=== PATIENT | male | born 1995 | race Native Hawaiian/Other Pacific Islander ===

== ENCOUNTER 2018-07-23 03:18 | Emergency (ER) | payer OTHER ==
[2018-07-23 03:39] VITALS: RESP 18; O2SAT 100
[2018-07-23] MEDS ORDERED: Sodium Chloride 0.9% 1,000 ML IV STA (03:57)
[2018-07-23 04:19] LABS: ALB/GLOB RATIO 1.5 (1.0-2.1); ALT/SGPT 22 U/L (21-72); AST/SGOT 26 U/L (17-59); BLOOD UREA NITROGEN 18 mg/dl (9-20); CALCIUM 9.6 mg/dL (8.4-10.2); GFR NON-AFRICAN AMERICAN 48
[2018-07-23 04:34] LABS: BASO # 0.1 K/uL (0.0-0.2); BASO % 0.7 % (0.0-2.0); EOS # 0.1 K/uL (0.0-0.7); EOS % 0.7 % (0.0-4.0); HEMOGLOBIN 15.2 g/dL (12.0-18.0); LYMPH % 40.4 % (20.0-40.0); MEAN CELL VOLUME 90.7 fl (80.0-94.0); MEAN CORPUSCULAR HEMOGLOBIN 29.8 pg (27.0-31.0); MEAN CORPUSCULAR HGB CONC 32.9 g/dL (33.0-37.0); MEAN PLATELET VOLUME 8.2 fl (7.2-11.7); MONO # 0.6 K/uL (0.0-0.8); MONO % 7.6 % (0.0-10.0); NEUT # 3.7 K/uL (1.8-7.0); NEUT % 50.6 % (50.0-75.0); NRBC % 0.3 % (0.0-0.0); RBC 5.1 Mil/uL (4.40-5.90); RED CELL DISTRIBUTION WIDTH 13.2 % (11.5-14.5); WHITE BLOOD COUNT 7.4 K/uL (4.8-10.8)
--- NOTE | 2018-07-23 04:34 | ED PDOC ---
HPI: Chest Pain Time Seen by Provider: 07/23/18 03:38 Chief Complaint (Nursing): Chest Pain History Per: Patient Additional Complaint(s): Pt. states at approximately 0215 today he woke up from sleep feeling chest pain and palpitations. Reports shortly afterwards he developed numbness to all his fingertips and toes. Pt. reports feeling faint. Chest pain and palpitations are intermittent. Denies SOB, hemoptysis, leg pain, hx of DVT or PE, fever, chills. Past Medical History Reviewed: Historical Data, Nursing Documentation, Vital Signs Vital Signs: Last Vital Signs Temp 97.7 F 07/23/18 03:35 Pulse 103 H 07/23/18 03:35 Resp 18 07/23/18 03:35 BP 146/76 07/23/18 03:35 Pulse Ox 100 07/23/18 03:35 - Medical History PMH: No Chronic Diseases Denies: CAD, Diabetes, HTN, Hypercholesterolemia, Hyperlipidemia, Hyperthyroidism, End Stage Renal Disease, Chronic Kidney Disease - Surgical History Surgical History: Denies: CABG Other surgeries: rhinoplasty - Family History Family History: States: No Known Family Hx Denies: [place], CAD - Living Arrangements Living Arrangements: With Friends/Others - Social History Current smoker - smoking cessation education provided: No Ex-Smoker (has not smoked in the last 12 months): No Alcohol: Social Drugs: Denies - Allergies Allergies/Adverse Reactions: Allergies Allergy/AdvReac Type Severity Reaction Status Date / Time No Known Allergies Allergy Verified 07/23/18 03:39 ADARSH Risk Score for UA/NSTEMI - ADARSH Risk Score Age > 64: NO 3 or more CAD Risk Factors: NO Known CAD (Stenosis greater than 50%): NO Aspirin use in past 7 days: NO Severe Angina: NO EKG ST changes greater than 0.5mm: NO Positive Cardiac Marker: NO ADARSH Score: 0 Risk %: 5% Wells Criteria for PE - Wells Criteria for Pulmonary Embolism Clinical Signs and Symptoms of DVT: No P.E is #1 Diagnosis, or Equally Likely: No Heart Rate >100: No Immobilization at least 3 days;Surgery previous 4 weeks: No Previous, objectively diagnosed PE or DVT: No Hemoptysis: No Malignancy w/treatment within 6 months, or palliative: No Total Score: 0 Review of Systems ROS Statement: Except As Marked, All Systems Reviewed And Found Negative Cardiovascular: Positive for: Chest Pain, Palpitations Neurological: Positive for: Numbness Physical Exam - Physical Exam Appears: Positive for: Well, Non-toxic, No Acute Distress Skin: Positive for: Normal Color, Warm. Negative for: Rash Eye Exam: Positive for: Normal appearance ENT: Positive for: Normal ENT Inspection Cardiovascular/Chest: Positive for: Regular Rate, Rhythm. Negative for: Murmur, Tachycardia Respiratory: Positive for: Normal Breath Sounds. Negative for: Respiratory Distress Gastrointestinal/Abdominal: Positive for: Soft. Negative for: Tenderness Neurological/Psych: Positive for: Awake, Alert, Oriented (x3), Mood/Affect (cooperative, appears anxious) - Laboratory Results Result Diagrams: 07/23/18 03:56 07/23/18 03:56 Lab Results: Total Bilirubin 0.6 mg/dl (0.2-1.3) 07/23/18 03:56 AST 26 U/L (17-59) 07/23/18 03:56 ALT 22 U/L (21-72) 07/23/18 03:56 Alkaline Phosphatase 70 U/L (38-126) 07/23/18 03:56 Total Protein 8.4 G/DL (6.3-8.2) H 07/23/18 03:56 Albumin 5.0 g/dL (3.5-5.0) 07/23/18 03:56 Globulin 3.4 gm/dL (2.2-3.9) 07/23/18 03:56 Albumin/Globulin Ratio 1.5 (1.0-2.1) 07/23/18 03:56 - ECG ECG: Positive for: Interpreted By Me ECG Rhythm: Positive for: Sinus Tachycardia. Negative for: ST/T Changes Rate: 103 O2 Sat by Pulse Oximetry: 100 - Progress ED Course And Treament: Labs, EKG ordered. Disposition - Clinical Impression Clinical Impression: Chest pain, Palpitations - Patient ED Disposition Is Patient to be Admitted: Transfer of Care (Dr. Sampson continued care at the end of my shift pending labs and re-evaluation.) - Disposition Disposition Time: 06:00 Condition: STABLE Forms: [employer] ([place] Islander)
[2018-07-23 06:33] LABS: T3 1.53 nmol/L (1.49-2.60)
[2018-07-23 07:27] LABS: BARBITURATES, UR NEGATIVE (NEGATIVE); BENZODIAZEPINES, UR NEGATIVE (NEGATIVE); OPIATES, UR NEGATIVE (NEGATIVE); PHENCYCLIDINE, UR NEGATIVE (NEGATIVE)
[2018-07-23 07:52] VITALS: BP 122/71; PULSE 88; TEMP 98.2
--- NOTE | 2018-07-23 09:20 | RAD ---
Date of service: 07/23/2018 HISTORY: chest pain COMPARISON: No prior. FINDINGS: LUNGS: No active pulmonary disease. PLEURA: No significant pleural effusion identified, no pneumothorax apparent. CARDIOVASCULAR: No aortic atherosclerotic calcification present. Normal cardiac size. No pulmonary vascular congestion. OSSEOUS STRUCTURES: No significant abnormalities. VISUALIZED UPPER ABDOMEN: Normal. OTHER FINDINGS: None. IMPRESSION: No active disease.
--- NOTE | 2018-07-23 09:39 | CARD ---
APPROVED REPORT Date of service: 07/23/2018 EKG Measurement Heart [id number] <Conclusion> Sinus tachycardia Otherwise normal ECG
== END 2018-07-23 07:50 | disposition home or self-care (01) ==
LOC: H.ER 03:18
DX: R07.9 Chest pain, unspecified (principal); R00.2 Palpitations; Z87.891 Personal history of nicotine dependence
CPT/HCPCS: 71045; 80053; 80320; 80324; 80345; 80346; 80349; 80353; 80358; 80361; 83992; 84439; 84443; 84481; 84484; 85025; 85378; 93005; 99284; J7030

== ENCOUNTER 2018-07-23 11:33 | Emergency (ER) | payer OTHER ==
[2018-07-23 11:41] VITALS: BMI 26.9
--- NOTE | 2018-07-23 12:25 | ED PDOC ---
HPI: Chest Pain Time Seen by Provider: 07/23/18 11:44 Chief Complaint (Nursing): Palpitations Chief Complaint (Provider): Palpitations History Per: Patient History/Exam Limitations: no limitations Onset/Duration Of Symptoms: Persistent Current Symptoms Are (Timing): Still Present Additional Complaint(s): 22 year old male with no significant medical history, returns to the emergency department with a complaint of persistent palpitations associated with headache and numbness to his hands and feet. He reports that symptoms occurred while he was sleeping last night. Patient was recent evaluated and discharged from this ED this morning for similar complaints with negative ddimer/trop/EKG. Otherwise, he denies any chest pain or shortness of breath. PCP: none provided Past Medical History Reviewed: Historical Data, Nursing Documentation, Vital Signs Vital Signs: Last Vital Signs Temp 98.3 F 07/23/18 11:42 Pulse 75 07/23/18 11:42 Resp 18 07/23/18 11:42 BP 121/74 07/23/18 11:42 Pulse Ox 99 07/23/18 11:42 - Medical History PMH: No Chronic Diseases Denies: CAD, Diabetes, HTN, Hypercholesterolemia, Hyperlipidemia, Hyperthyroidism, End Stage Renal Disease, Chronic Kidney Disease - Surgical History Surgical History: Denies: CABG - Family History Family History: Denies: [place], CAD - Allergies Allergies/Adverse Reactions: Allergies Allergy/AdvReac Type Severity Reaction Status Date / Time No Known Allergies Allergy Verified 07/23/18 11:49 ADARSH Risk Score for UA/NSTEMI - ADARSH Risk Score Age > 64: NO 3 or more CAD Risk Factors: NO Known CAD (Stenosis greater than 50%): NO Aspirin use in past 7 days: NO Severe Angina: NO EKG ST changes greater than 0.5mm: NO Positive Cardiac Marker: NO ADARSH Score: 0 Risk %: 5% Review of Systems ROS Statement: Except As Marked, All Systems Reviewed And Found Negative Cardiovascular: Positive for: Palpitations. Negative for: Chest Pain Respiratory: Negative for: Shortness of Breath Neurological: Positive for: Numbness (hands and feet), Headache Physical Exam - Reviewed Nursing Documentation Reviewed: Yes Vital Signs Reviewed: Yes - Physical Exam Appears: Positive for: Non-toxic, No Acute Distress Head Exam: Positive for: ATRAUMATIC Skin: Positive for: Normal Color. Negative for: Pallor Eye Exam: Positive for: Normal appearance, EOMI, PERRL ENT: Positive for: Normal ENT Inspection Neck: Positive for: Normal, Supple Cardiovascular/Chest: Positive for: Regular Rate, Rhythm, Chest Non Tender. Negative for: Murmur, Bradycardia, Tachycardia Respiratory: Positive for: Normal Breath Sounds. Negative for: Wheezing, Respiratory Distress Pulses-Radial (L): 2+ Pulses-Radial (R): 2+ Gastrointestinal/Abdominal: Positive for: Normal Exam, Soft. Negative for: Tenderness Back: Positive for: Normal Inspection Extremity: Positive for: Normal ROM (upper/lower). Negative for: Pedal Edema, Calf Tenderness Neurological/Psych: Positive for: Awake, Alert, Symmetric/Intact Strength (5/5), Oriented, electric meter technician II-XII (grossly intact). Negative for: Motor/Sensory Deficits - ECG O2 Sat by Pulse Oximetry: 99 (RA) Pulse Ox Interpretation: Normal Medical Decision Making Medical Decision Making: Time: 1150 Initial Plan: patient was recently discharged with (-) cardiac work-up. repeat EKG and ddimer/troponin Scribe Attestation: Documented by Re Graham, acting as a scribe for Eugenio Roblero MD. Provider Scribe Attestation: All medical record entries made by the Scribe were at my direction and personally dictated by me. I have reviewed the chart and agree that the record accurately reflects my personal performance of the history, physical exam, medical decision making, and the department course for this patient. I have also personally directed, reviewed, and agree with the discharge instructions and disposition. Disposition - Clinical Impression Clinical Impression: Palpitations - Patient ED Disposition Is Patient to be Admitted: No Counseled Patient/Family Regarding: Studies Performed, Diagnosis, Need For Followup, Rx Given - Disposition Referrals: [facility] [Outside] Disposition: Routine/Home Disposition Time: 12:37 Condition: FAIR Additional Instructions: Outpatient Holter Monitor Instructions: Palpitations Forms: [employer] ([place] Islander)
[2018-07-23 13:02] VITALS: BP 125/80; PULSE 71; RESP 20; TEMP 99; O2SAT 100
--- NOTE | 2018-07-23 23:46 | CARD ---
APPROVED REPORT Date of service: 07/23/2018 EKG Measurement Heart [id number] <Conclusion> Normal sinus rhythm with sinus arrhythmia Incomplete right bundle branch block Borderline ECG
== END 2018-07-23 12:55 | disposition home or self-care (01) ==
LOC: H.ER 11:33
DX: R51 Headache (principal); R00.2 Palpitations

== ENCOUNTER 2018-07-23 17:00 | Emergency (ER) | payer OTHER ==
[2018-07-23 17:01] VITALS: BMI 26.9
--- NOTE | 2018-07-23 19:03 | ED PDOC ---
HPI: General Adult Time Seen by Provider: 07/23/18 18:16 Chief Complaint (Nursing): Anxiety Chief Complaint (Provider): Neck pain History Per: Patient History/Exam Limitations: no limitations Current Symptoms Are (Timing): Still Present Additional Complaint(s): 22 year old male presents to the ER complaining of neck pain which he thinks is causing him to feel lightheaded and have periodic palpitations. Patient reports he was discharged from this hospital today but lightheadedness and palpitations returned when he lied down. He indicates he was diagnosed with cervical spondylosis and believes this may have to do with neck pain, lightheadedness, and palpitations. He also indicates he has been sitting for the past week looking down and doing work which may have caused neck pain. Pt had two work ups today for the same complaint, has a holter monitor on with follow up scheduled. Pt denies leg swelling, calf pain, recent travel or immobilization. Pt denies anxiety or stress. PMD: none provided Past Medical History Reviewed: Historical Data, Nursing Documentation, Vital Signs Vital Signs: Last Vital Signs Temp 98.0 F 07/23/18 17:39 Pulse 80 07/23/18 17:39 Resp 17 07/23/18 17:39 BP 109/74 07/23/18 17:39 Pulse Ox 100 07/23/18 17:39 - Medical History PMH: No Chronic Diseases Denies: CAD, Diabetes, HTN, Hypercholesterolemia, Hyperlipidemia, Hyperthyroidism, End Stage Renal Disease, Chronic Kidney Disease - Surgical History Surgical History: No Surg Hx Denies: CABG - Family History Family History: States: Unknown Family Hx Denies: [place], CAD - Home Medications Home Medications: Ambulatory Orders Medication Instructions Recorded Cyclobenzaprine [Cyclobenzaprine 10 mg PO TID PRN #12 tab 07/23/18 HCl] Ibuprofen [Motrin Tab] 600 mg PO Q6 PRN #20 tab 07/23/18 - Allergies Allergies/Adverse Reactions: Allergies Allergy/AdvReac Type Severity Reaction Status Date / Time No Known Allergies Allergy Verified 07/23/18 11:49 Review of Systems ROS Statement: Except As Marked, All Systems Reviewed And Found Negative Cardiovascular: Positive for: Chest Pain, Palpitations Musculoskeletal: Positive for: Neck Pain Physical Exam - Reviewed Nursing Documentation Reviewed: Yes Vital Signs Reviewed: Yes - Physical Exam Comments: GENERALIZED APPEARANCE:Patient is awake, alert, oriented x3 in no acute distress. SKIN: Warm, dry; (-) cyanosis. EYES: (-) conjunctival pallor. ENMT: Mucous membranes moist. NECK: full ROM; (+) C6 C7 mild paraspinal muscle tenderness; (-)bony deformity (-) menigismus (-) stiffness, (-) lymphadenopathy, (-) JVD. CHEST AND RESPIRATORY: (-) rash, (-) chest wall tenderness. Lungs: (-) rales, (-) rhonchi, (-) wheezes, (-) rub; breath sounds equal bilaterally. HEART AND CARDIOVASCULAR: (-) irregularity; (-) murmur, (-) gallop, (-) rub. EXTREMITIES: 5/5 strength x4 extremities (-) deformity; (-) edema, (-) calf tenderness. (+) distal pulses. NEURO AND PSYCH: Mental status as above. Cranial nerves grossly intact; strength symmetric. - ECG O2 Sat by Pulse Oximetry: 100 (RA) Pulse Ox Interpretation: Normal Medical Decision Making Medical Decision Making: Initial Impression: Neck pain Initial Plan: --Cervical spine X-ray --Flexeril 10mg PO --Motrin 600mg PO This is patient's 3rd visit today. During 2 prior visits, full workups were done. Troponin and D Dimer were negative twice. Pt has holter monitor on with proper follow up. Labs, ekg and xrs reviewed by me from previous visit. Mildly low potassium, will give PO supplement, otherwise labs wnl Pt is constantly coming out of his room to ask what is going on and if he can have a bed to lie down in, there are no current beds available cervical xray reviewed by me - no acute fracture, or dislocation informed pt he will be notified if any discrepancies Pt asked for a neck collar, given a soft collar and then he took it off, informed him to wear it to help his pain On re eval pt does report mild improvement of pain Discussed case with Dr. Reinoso who agrees with assessment and plan Discussed results, diagnosis, treatment, return precautions and f/u with pt who is understanding, in agreement and stable for dc Scribe Attestation: Documented by Braden Downs acting as a scribe for Moy LEON. Provider Scribe Attestation: All medical record entries made by the Scribe were at my direction and personally dictated by me. I have reviewed the chart and agree that the record accurately reflects my personal performance of the history, physical exam, medical decision making, and the department course for this patient. I have also personally directed, reviewed, and agree with the discharge instructions and disposition. Disposition - Clinical Impression Clinical Impression: Neck pain, Muscle spasm - Patient ED Disposition Is Patient to be Admitted: No Counseled Patient/Family Regarding: Studies Performed, Diagnosis, Need For Followup, Rx Given - Disposition Referrals: doctor, as scheduled [Other] [facility] [Outside] Disposition: Routine/Home Disposition Time: 20:34 Condition: STABLE Additional Instructions: Take medications as prescribed. do not drink alcohol or drive when taking flexeril Thank you for letting us take care of you today. The emergency medical care you received today was directed at your acute symptoms. If you were prescribed any medication, please fill it and take as directed. It may take several days for your symptoms to resolve. Return to the Emergency Department if your symptoms worsen, do not improve, or if you have any other problems. Please contact your doctor in 2 days for re-evaluation and follow up / or call one of the physicians/clinics you have been referred to that are listed on the Patient Visit Information form that is included in your discharge packet. Bring any paperwork you were given at discharge with you along with any medications you are taking to your follow up visit. Our treatment cannot replace ongoing medical care by a primary care provider (PCP) outside of the emergency department. Thank you for allowing the [facility] team to be part of your care today. If you had an X-Ray : A Radiologist will review the ED reading if any change in treatment is needed we will contact you. Prescriptions: Cyclobenzaprine [Cyclobenzaprine HCl] 10 mg PO TID PRN #12 tab PRN Reason: Muscle Spasm Ibuprofen [Motrin Tab] 600 mg PO Q6 PRN #20 tab PRN Reason: Pain, Moderate (4-7) Instructions: Neck Pain, Muscle Spasms (DC) Forms: [employer] (Upper Sorbian) Print Language: AUSTRALIAN - POA Present On Arrival: None
[2018-07-23] MEDS ORDERED: Potassium Chloride 20 mEq ER Tab PO STA (20:30)
[2018-07-23] MEDS ORDERED: Potassium Chloride 20 mEq ER Tab PO ONE (20:39)
[2018-07-23 20:51] VITALS: BP 125/80; PULSE 61; RESP 18; TEMP 97.9
--- NOTE | 2018-07-24 09:53 | RAD ---
Date of service: 07/23/2018 PROCEDURE: Cervical Spine Radiographs. HISTORY: Pain. COMPARISON: None available. TECHNIQUE: 3 views obtained. FINDINGS: BONES: Alignment maintained. No fracture. Dens Intact. DISC SPACES: Normal. SOFT TISSUES: Normal. No prevertebral soft tissue swelling. OTHER FINDINGS: None. IMPRESSION: Normal cervical spine radiographs
[2018-07-24 12:09] VITALS: O2SAT 100
== END 2018-07-23 20:55 | disposition home or self-care (01) ==
LOC: H.ER 17:00
DX: M54.2 Cervicalgia (principal); M62.838 Other muscle spasm

== ENCOUNTER 2018-07-26 02:54 | Emergency (ER) | payer OTHER ==
[2018-07-26 02:55] VITALS: BMI 26.9
--- NOTE | 2018-07-26 03:27 | ED PDOC ---
HPI: Psych/Substance Abuse Time Seen by Provider: 07/26/18 03:19 Chief Complaint (Nursing): Weakness/Neurological Deficit Chief Complaint (Provider): anxiety History Per: Patient History/Exam Limitations: no limitations Current Symptoms Are (Timing): Still Present Additional Complaint(s): 22 year old male is brought to the emergency department by his roommate at [facility], for an evaluation of intermittent palpitations, shortness of breath, and chest pain upon waking up prior to arrival. Patient has been evaluated in ED 4 times for neck pain and bilateral numbness to his hands with (-) work-up on 07/23/18. He denies any falls or injuries but notes a "pinch nerve" that was seen on a MRI while living in [place]. Patient states he has had bad posture from prolong studying lately. Otherwise, he offers no further complaints or changes in symptoms since last visit. PCP: none provided Past Medical History Reviewed: Historical Data, Nursing Documentation, Vital Signs Vital Signs: Last Vital Signs Temp 98.1 F 07/26/18 02:57 Pulse 75 07/26/18 02:57 Resp 18 07/26/18 02:57 BP 122/78 07/26/18 02:57 Pulse Ox 97 07/26/18 02:57 - Medical History PMH: Denies: CAD, Diabetes, HTN, Hypercholesterolemia, Hyperlipidemia, Hyperthyroidism, End Stage Renal Disease, Chronic Kidney Disease - Surgical History Surgical History: Denies: CABG - Family History Family History: States: Unknown Family Hx Denies: [place], CAD - Home Medications Home Medications: Ambulatory Orders Medication Instructions Recorded Cyclobenzaprine [Cyclobenzaprine 10 mg PO TID PRN #12 tab 07/23/18 HCl] Ibuprofen [Motrin Tab] 600 mg PO Q6 PRN #20 tab 07/23/18 - Allergies Allergies/Adverse Reactions: Allergies Allergy/AdvReac Type Severity Reaction Status Date / Time No Known Allergies Allergy Verified 07/23/18 11:49 Review of Systems ROS Statement: Except As Marked, All Systems Reviewed And Found Negative Cardiovascular: Positive for: Chest Pain, Palpitations Musculoskeletal: Positive for: Neck Pain Neurological: Positive for: Numbness (bilateral hands), Headache Psych: Positive for: Anxiety Physical Exam - Reviewed Nursing Documentation Reviewed: Yes Vital Signs Reviewed: Yes - Physical Exam Appears: Positive for: Well, Non-toxic, No Acute Distress Head Exam: Positive for: ATRAUMATIC, NORMAL INSPECTION, NORMOCEPHALIC Skin: Positive for: Normal Color Eye Exam: Positive for: Normal appearance Neck: Positive for: Normal, Painless ROM Cardiovascular/Chest: Positive for: Regular Rate, Rhythm Respiratory: Negative for: Respiratory Distress Extremity: Positive for: Normal ROM (upper/lower) Neurological/Psych: Positive for: Awake, Alert, Symmetric/Intact Strength (5/5 technical business systems analyst strength bilaterally), Oriented (3), Mood/Affect (calm and cooperative) - ECG O2 Sat by Pulse Oximetry: 97 (RA) Pulse Ox Interpretation: Normal Medical Decision Making Medical Decision Making: Time: 399 Initial Plan: Upon provider evaluation, patient is medically stable and requires no further treatment in the ED at this time. Patient will be discharged home with referral to follow up at [facility]. Counseling was provided and all questions were answered regarding diagnosis. There is agreement to discharge plan. Return if symptoms persist or worsen. Clinical Impression: anxiety; neck pain Scribe Attestation: Documented by Re Graham, acting as a scribe for Denisse Upton MD. Provider Scribe Attestation: All medical record entries made by the Scribe were at my direction and personally dictated by me. I have reviewed the chart and agree that the record accurately reflects my personal performance of the history, physical exam, medical decision making, and the department course for this patient. I have also personally directed, reviewed, and agree with the discharge instructions and disposition. Disposition - Clinical Impression Clinical Impression: Neck pain, Anxiety - Patient ED Disposition Is Patient to be Admitted: No Counseled Patient/Family Regarding: Diagnosis, Need For Followup - Disposition Referrals: [facility] [Outside] Disposition: Routine/Home Disposition Time: 04:00 Condition: GOOD Additional Instructions: EMELY HILL, thank you for letting us take care of you today. Your provider was Denisse Upton MD and you were treated for ANXIETY. The emergency medical care you received today was directed at your acute symptoms. If you were prescribed any medication, please fill it and take as directed. It may take several days for your symptoms to resolve. Return to the Emergency Department if your symptoms worsen, do not improve, or if you have any other problems. Please contact your doctor or call one of the physicians/clinics you have been referred to that are listed on the Patient Visit Information form that is included in your discharge packet. Bring any paperwork you were given at discharge with you along with any medications you are taking to your follow up visit. Our treatment cannot replace ongoing medical care by a primary care provider outside of the emergency department. Thank you for allowing the [facility] team to be part of your care today. Instructions: Neck Pain, Anxiety, Adult (DC)
[2018-07-26 04:34] VITALS: BP 118/73; PULSE 72; RESP 16; TEMP 98.2
[2018-07-26 05:10] VITALS: O2SAT 97
== END 2018-07-26 04:34 | disposition home or self-care (01) ==
LOC: H.ER 02:54
DX: M54.2 Cervicalgia (principal); F41.9 Anxiety disorder, unspecified; Z00.8 Encounter for other general examination